=== PATIENT | male | born 1950 | race Caucasian/White ===

== ENCOUNTER 2021-05-13 12:02 | Inpatient (IN) | payer OTHER, SELFPAY ==
[~2021-05-13] VITALS: Ht 162.6 cm; Wt 69.0 kg
[2021-05-13 12:05] VITALS: BP_SYST 118
[2021-05-13 13:05] LABS: ANION GAP 12 (5-15); CALCIUM 8.5 mg/dL (8.4-11.0); CHLORIDE 99 mmol/L (98-107); CREATININE 0.97 mg/dL (0.55-1.30); GLUCOSE 119 mg/dL (70-99); POTASSIUM 3.7 mmol/L (3.5-5.1); SODIUM SERUM 136 mmol/L (136-145); UREA NITROGEN, BLOOD 14 mg/dL (8-21)
[2021-05-13 13:14] LABS: ALANINE AMINOTRANSFERASE 46 U/L (12-78); ASPARTATE AMINOTRANSFERASE 23 U/L (10-37); TOTAL BILIRUBIN 0.4 mg/dL (0.0-1.0)
--- NOTE | 2021-05-13 13:15 | NUR ---
BIB ALS FOR CHEST PAIN SINCE 10AM HX OF OR WITH CARDIAC STENTS. 12 LEAD DONE BLOOD TO LAB ON [facility] IN [facility] ON MONITOR
[2021-05-13 13:26] LABS: EOSINOPHILS % (AUTO) 0.3 % (0.0-4.0); HEMATOCRIT 41.8 % (36-54); HEMOGLOBIN 14.2 g/dL (14.0-18.0); LYMPHOCYTES # (AUTO) 1.3 K/uL (1.0-5.5); MEAN CORPUSCULAR HEMOGLOBIN 32 pg (27-31); MEAN CORPUSCULAR HGB CONC 34 % (32-36); MEAN CORPUSCULAR VOLUME 94 fL (79.0-98.0); MONOCYTES # (AUTO) 0.4 K/uL (0.0-1.0); PLATELET COUNT (AUTO) 237 K/uL (130-430); RED BLOOD CELL COUNT(AUTO) 4.46 MIL/uL (4.2-6.2); RED CELL DISTRIBUTION WIDTH 13.6 % (9.0-15.0)
[2021-05-13 13:30] LABS: BASOPHILS % (AUTO) 0.3 % (0.0-2.0); NEUTROPHILS # (AUTO) 5.3 K/uL (1.8-7.7); NEUTROPHILS % (AUTO) 75.4 % (40.0-70.0)
--- NOTE | 2021-05-13 13:57 | NUR ---
covid swab performed at bedside and sent to lab
--- NOTE | 2021-05-13 14:20 | NUR ---
CALLED WITH UPDATE CARE OF PLAN THAT PT WILL BE ADMITTED
[2021-05-13] MEDS ORDERED: ASPI-524 PO (14:35)
[2021-05-13] MEDS ORDERED: LIP10 PO (14:35)
[2021-05-13] MEDS ORDERED: ASPIRIN 325 MG TABLET (ECOTRIN) PO ONE (14:45)
--- NOTE | 2021-05-13 15:15 | NUR ---
PT HAVING MS CP 02/[address] CHOI CALLED AND ED MD STORM. EKG NO CHANGES FROM 1ST. ORDERS RECEIVED FROM DR CHOI
[2021-05-13] MEDS ORDERED: *LOVENOX 1MG/KG Q12H/PHARMACY XX ONE (16:00)
[2021-05-13] MEDS ORDERED: MORPHINE 2 MG/ML INJ. SYRINGE IVP PRN (16:00)
[2021-05-13] MEDS ORDERED: NALOXONE HCL 0.4 MG/ML AMP (NARCAN) IVP PRN (16:00)
[2021-05-13] MEDS ORDERED: NITROGLYCERIN 0.4 MG TAB.SUBL SL PRN (16:00)
[2021-05-13] MEDS ORDERED: NITROGLYCERIN 0.4 MG TAB.SUBL SL ONE (16:08)
--- NOTE | 2021-05-13 16:10 | NUR ---
0.4MG SL NTG GIVEN FOR CP
[2021-05-13] MEDS: ENOXAPARIN SODIUM 80 MG/0.8 ML SYRINGE SUBCUT SCH (18:12)
--- NOTE | 2021-05-13 18:18 | NUR ---
PAIN FREE STABLE VS WILL CONTINUE TO MONITOR
--- NOTE | 2021-05-13 20:07 | NUR ---
REPORT TO MARLON BARBER
[2021-05-14] VITALS (7 sets, daily range): BP systolic 113–139
--- NOTE | 2021-05-14 01:25 | NUR ---
INITIAL NOTES: RECEIVED PT FROM ER , PT IS AWAKE , ALERT AND ORIENTED ; DENIED ANY CHEST PAIN OR ANY DISCOMFORT AT THIS TIME ; VITALS ARE STABLE ; ASSESSMENT COMPLETED .
[2021-05-14] MEDS ORDERED: ACETAMINOPHEN 325 MG TABLET PO PRN (02:45)
--- NOTE | 2021-05-14 04:56 | NUR ---
Consultation Paged Reason for Consultation: Chest Pain Was consult called: Y Person who was notified: Paz Consulting Physician: Dr. Hilliard Ordering Physician: Dr. Torrez
[2021-05-14] MEDS: ENOXAPARIN SODIUM 80 MG/0.8 ML SYRINGE SUBCUT SCH ×2 (06:09→17:19)
--- NOTE | 2021-05-14 07:10 | NUR ---
CLOSING NOTES: REPORT GIVEN TO RN AT BEDSIDE ; ALL NEEDS ATTENDED , NOT IN ANY ACUTE DISTRESS.
--- NOTE | 2021-05-14 07:48 | NUR ---
Nutrition Update Charlie Scale 18 noted. Pt admitted for chest pain. Diet: cardiac BMI: 26.1 kg/m2 RD to follow per nutrition care standards.
--- NOTE | 2021-05-14 08:21 | NUR ---
SPOKE WITH [facility]SING [facility] AND THEY STATED THAT DR CAUSEY IS GOING TO HAVE THIS PATIENT TRANSFER TO [facility] SINCE THE TROPONIN IS VERY ELEVATED. CONTACTED CASE MANAGEMENT TO LET THEM KNOW
--- NOTE | 2021-05-14 08:36 | NUR ---
SPOKE WITH DR ESTEVEZ AT [facility], INFORMED HIM THAT DR CAUSEY WANTS PATIENT TRANSFERRED TO [facility]. [place] [id number]
--- NOTE | 2021-05-14 08:38 | NUR ---
NOTIFIED DR CAUSEY [place] TROPONIN [id number]. NO NEW ORDERS AT THIS TIME
--- NOTE | 2021-05-14 08:40 | NUR ---
ORDERED BY ANESTHESIOLOGIST/PHYSICIAN, DR CAUSEY TO FAX FACE SHEET TO [facility].
--- NOTE | 2021-05-14 08:41 | NUR ---
[facility]/HCP CM MS KATHARINE MAYFIELD WAS CALLED TO ARRANGE TRANSFER TO [facility] FOR HEART CATH.. LEFT HER A VOICE MESSAGE.
[2021-05-14] MEDS: ASPIRIN 325 MG TABLET (ECOTRIN) PO SCH (08:59)
--- NOTE | 2021-05-14 09:19 | NUR ---
3RD CALL TO [facility]/HCP CM MS ALCANTAR RE; TO INFORM THAT PT WAS DENIED TRANSFER TO [facility]. DR CAUSEY SUGGESTED THAT ARRANGEMENT TO OTHER HOSPITAL LIKE [facility] MUST BE DONE.. LEFT HER A VOICE MESSAGE AGAIN.
[2021-05-14] MEDS ORDERED: METOPROLOL SUCCINATE 25 MG TAB.SR.24H (TOPROL XL) PO ONE (11:15)
--- NOTE | 2021-05-14 13:10 | NUR ---
SPOKE WITH PATIENT SON AT [facility], EDUCTED THAT DR CAUSEY AND CASE MANAGEMENT ARE WORKING ON GETTING PLACEMENT, [facility] DID NOT HAVE AVAILABILITY, EXPLAINED THAT THOUGH THE PATIENT MAY FEEL OK NOW HE HAS A VERY ELEVATED TROPONIN AND SO DR CAUSEY WANTS HIM TO TRANSFER TO PERFORM AND MORE THOROUGH CARDIAC ASSESSMENT PLAN. SON VOICED UNDERSTANDING
--- NOTE | 2021-05-14 19:15 | NUR ---
change of shift.pt.presents quiescent affect;calm,resting.no c/o pain,chest discomfort.pt.capable to reposition self/ambulate un-assisted.pt.presents iv access lock.general status stable.respiratory status stable;unlabored@room air.call light/telephone w/in access of the pt.
--- NOTE | 2021-05-14 20:00 | NUR ---
pt.assessed.v/s assessed values wnl.no c/o pain;chest discomfort,nausea.i have apprised the pt.that snacks/beverages are available w/in the shift.no requests posited@this hour.pt.capable to reposition self.call light/telephone w/in access of the pt.
--- NOTE | 2021-05-14 22:00 | NUR ---
pt.assessed.pt.presents quiescent affect calm,resting viewing tv programming.no c/o pain;chest discomfort.nausea.pt.capable to reposition self.no requests posited@this hour.call light/telephone w/in access of the pt.
[2021-05-15] VITALS: BP_SYST 115
--- NOTE | 2021-05-15 | NUR ---
pt.assessed.v/s assessed values wnl.no c/o pain;chest discomfort,nausea.no requests posited@this hour.pt.capable to reposition self.call light/telephone w/in access of the pt.
--- NOTE | 2021-05-15 02:00 | NUR ---
pt.assessed.pt.present quiescent affect;calm,somnolent.per flacc pain mgx pt.absent facial grimaces/body posturing. pt.capable to reposition self.call light/telephone w/in access of the pt.
--- NOTE | 2021-05-15 04:00 | NUR ---
pt.assessed.pt.presents quiescent affect calm,somnolent.per flacc pain mgx pt.absent facial grimaces/body posturing. pt.capable to reposition self.call light/telephone w/in access of the pt.
[2021-05-15] MEDS: ENOXAPARIN SODIUM 80 MG/0.8 ML SYRINGE SUBCUT SCH (05:54)
--- NOTE | 2021-05-15 05:55 | NUR ---
pt.assessed.no c/o pain,nausea.no requests posited@this hour.i have administered lovenox;70mg sq 0600a dose.pt.capable t reposition self.call light/telephone w/in access of the pt.
--- NOTE | 2021-05-15 08:00 | NUR ---
am notes pt in bed. a/ox4. denies any chest pain or sob. vitals stable. safety precautions in place.
[2021-05-15 08:04] VITALS: BP_SYST 134
[2021-05-15] MEDS: ASPIRIN 325 MG TABLET (ECOTRIN) PO SCH (08:53)
[2021-05-15] MEDS ORDERED: METOPROLOL SUCCINATE 25 MG TAB.SR.24H (TOPROL XL) PO SCH (09:00)
[2021-05-15] MEDS ORDERED: ATORVASTATIN 20 MG TABLET PO ONE (09:00)
[2021-05-15] MEDS ORDERED: CLOPIDOGREL BISULFATE 75 MG TABLET PO ONE (10:15)
--- NOTE | 2021-05-15 10:49 | NUR ---
md visit seen by dr oswald and dr vargas
[2021-05-15] MEDS ORDERED: LIP20 PO (10:50)
[2021-05-15] MEDS ORDERED: CLOP75TA32 PO (10:50)
[2021-05-15] MEDS ORDERED: METO25TA3 PO (10:50)
[2021-05-15 12:44] VITALS: BP_SYST 133
--- NOTE | 2021-05-15 13:48 | NUR ---
D/C Patient Patient given medication reconciliation form and D/C instructions. Exit Care provided. Patient verbalized understanding. MD discussed with patient the results and treatment provided. Ambulatory with steady gait for discharge to home. Patient in stable condition, ID band removed. IV catheter removed, intact and dressing applied, no active bleeding. Patient educated on pain management/follow up with cardiologistfor angiogram. pt verbalized understanding .All belongings sent with patient.pt left home with .
[2021-05-16] MEDS ORDERED: ATORVASTATIN 20 MG TABLET PO SCH (09:00)
== END 2021-05-15 13:48 | disposition home or self-care (01) | DRG 282 ==
LOC: SED 12:02 → STU 13:53
PROVIDERS: ADMIT Internal Medicine Hospice and Palliative Medicine; ATTEND Internal Medicine Hospice and Palliative Medicine
DX: I21.4 Non-ST elevation (NSTEMI) myocardial infarction (principal); I25.10 Atherosclerotic heart disease of native coronary artery without angina pectoris; Z20.822 Contact with and (suspected) exposure to COVID-19; F17.210 Nicotine dependence, cigarettes, uncomplicated; I10 Essential (primary) hypertension; E78.5 Hyperlipidemia, unspecified; Z95.5 Presence of coronary angioplasty implant and graft; Z79.899 Other long term (current) drug therapy; Z79.82 Long term (current) use of aspirin
CPT/HCPCS: 36415; 71045; 80053; 84484; 85025; 93005; 96374; 99285; G0378; J1650; J2270